=== PATIENT | male | born 1980 | race Two or more races ===

== ENCOUNTER 2023-09-11 10:49 | Emergency (ER) | payer BC ==
[2023-09-11 11:25] VITALS: BP 148/97; O2SAT 100
--- NOTE | 2023-09-11 11:39 | XRAY Report ---
PROCEDURE: Ankle 3+V RT INDICATIONS: Trauma TECHNIQUE: 3 views of the ankle were acquired. COMPARISON: None. FINDINGS: Bones: No fractures or dislocations. Ankle mortise is normally aligned. No suspicious bony lesions . Soft tissues: No tibiotalar joint effusion. Achilles tendon appears normal. IMPRESSION: No acute bony abnormality. Reviewed by: Rene Stauffer MD on 09/11/2023 11:38 AM [facility] [place] Approved by: Rene Stauffer MD on 09/11/2023 11:38 AM PST Station ID: [id number]
--- NOTE | 2023-09-11 11:40 | XRAY Report ---
PROCEDURE: Foot 3+V RT INDICATIONS: Trauma TECHNIQUE: 3 views of the foot were acquired. COMPARISON: None. FINDINGS: Bones: No fractures or dislocations. Mild hallux evaluation of the first MTP joint with medial bunio n formation. No suspicious bony lesions. Soft tissues: No suspicious soft tissue calcifications or masses. IMPRESSION: No acute bony abnormality. Reviewed by: Rene Stauffer MD on 09/11/2023 11:38 AM PST Approved by: Rene Stauffer MD on 09/11/2023 11:38 AM PST Station ID: [id number]
--- NOTE | 2023-09-11 12:35 | ED Physician Documentation ---
History of Present Illness - Stated complaint Stated Complaint: RT FOOT PX - Chief complaint Chief Complaint: Trauma Ext - History obtained from History obtained from: Patient - History of Present Illness Pain level max: 5 Pain level now: 3 - Additonal information Additional information: Patient is a 43-year-old male who presents to the emergency department right foot and ankle pain for the past 2 to 3 days. Worse with walking, better with rest. He does not recall any specific injury but states he walks on uneven ground frequently. Has not taken anything for pain. No significant swelling. No numbness or tingling. Review of Systems Constitutional: denies: Fever, Chills Respiratory: denies: Cough GI: denies: Vomiting, Diarrhea Skin: denies: Rash Musculoskeletal: denies: Neck pain, Back pain Neurologic: denies: Headache PD PAST MEDICAL HISTORY - Past Medical History Past Medical History: Yes Cardiovascular: None Respiratory: None Neuro: None Endocrine/Autoimmune: None GI: None : None HEENT: None Psych: None Musculoskeletal: None Derm: None - Past Surgical History Past Surgical History: No - Present Medications Home Medications: Ambulatory Orders Medication Instructions Recorded Confirmed No Known Home Medications 09/11/23 09/11/23 - Allergies Allergies/Adverse Reactions: Allergies Allergy/AdvReac Type Severity Reaction Status Date / Time No Known Drug Allergies Allergy Verified 09/11/23 10:58 - Social History Does the pt smoke?: Yes Smoking Status: Current every day smoker Does the pt drink ETOH?: Yes ETOH Use: Beer Does the pt have substance abuse?: No - Immunizations Immunizations are current?: Yes - POLST Patient has POLST: No PD ED PE NORMAL - Vitals Vital signs reviewed: Yes - General General: Alert and oriented X 3, No acute distress - HEENT HEENT: Moist mucous membranes - Neck Neck: Supple, no meningeal sign - Respiratory Respiratory: No respiratory distress - Derm Derm: Warm and dry - Extremities Extremities: Other (R foot/ankle - No bony tenderness. No tenderness over the base of the fifth metatarsal. No tenderness over the bilateral malleoli. No bruising. No significant swelling. There are some tenderness on the plantar aspect of the foot. Neurovascular intact) - Neuro Neuro: Alert and oriented X 3 - Psych Psych: Normal mood, Normal affect Results - Vitals Vitals: Vital Signs - 24 hr 09/11/23 10:59 Temperature 36.5 C Heart Rate 98 Respiratory 16 Rate Blood Pressure 148/97 H O2 Saturation 100 - Rads (name of study) Right foot x-ray Relevant Findings:: Final report received, See rad report Right ankle x-ray Relevant Findings:: Final report received, See rad report PD Medical Decision Making - ED course Complexity details: reviewed results, re-evaluated patient, considered differential, d/w patient ED course: There are no acute findings on x-ray of the foot or ankle. No evidence of fracture or dislocation. Clinically suspicious for soft tissue injury. Patient does not want crutches or a splint. He would like a walking boot. Will trial him in this for a few days. Can utilize Motrin and Tylenol as needed for pain and weight-bear as tolerated. Patient counseled regarding signs and symptoms for which I believe and urgent re-evaluation would be necessary. Patient with good understanding of and agreement to plan and is comfortable going home at this time This document was made in part using voice recognition software. While efforts are made to proofread this document, sound alike and grammatical errors may occur. Departure - Departure Disposition: 01 Home, Self Care Clinical Impression: Strain of foot, right Qualifiers: Encounter type: initial encounter Qualified Code(s): S96.911A - Strain of unspecified muscle and tendon at ankle and foot level, right foot, initial encounter Right ankle strain Qualifiers: Encounter type: initial encounter Qualified Code(s): S96.911A - Strain of unspecified muscle and tendon at ankle and foot level, right foot, initial encounter Condition: Good Instructions: ED Sprain Ankle, ED Sprain Foot Follow-Up: your,doctor in 1 week for recheck [Other] Comments: You can use motrin or tylenol for pain. Your xrays do not show any acute abnormalities. There are no fractures. You can wear the boot for the next few days, but continue to stretch your ankle and foot at home. Return if you worsen.
== END 2023-09-11 12:53 | disposition home or self-care (01) ==
LOC: ED 10:49
DX: S96.911A Strain of unspecified muscle and tendon at ankle and foot level, right foot, initial encounter (principal); X58.XXXA Exposure to other specified factors, initial encounter; F17.200 Nicotine dependence, unspecified, uncomplicated
CPT/HCPCS: 99283